=== PATIENT | male | born 1980 | race Caucasian/White ===

== ENCOUNTER 2025-01-05 20:33 | Inpatient (IN) | payer OTHER, SELFPAY ==
[2025-01-05 12:49] VITALS: BP 131/83
[2025-01-05 13:12] LABS: Urine Albumin 2+ (Neg - Trace); Urine Bilirubin 2+ (Negative); Urine Character Slightly Cloudy (Clear); Urine Glucose Negative (Negative); Urine Ketone Negative (Negative); Urine Leukocyte 3+ (Negative); Urine Nitrite Positive (Negative); Urine Occult Blood 4+ (Negative); Urine Urobilinogen 2+ (Neg - 1+)
[2025-01-05 13:14] LABS: Urine Color Orange
[2025-01-05 13:25] LABS: Urine Bacteria Few (Negative)
[2025-01-05 13:26] LABS: Urine Red Blood Cell 40-50 /HPF (0-2)
[2025-01-05 15:14] VITALS: BP 143/79
[2025-01-05 16:12] VITALS: BMI 32.8
--- NOTE | 2025-01-05 17:19 | ED.GENMED ---
History of Present Illness
<Quincy Orantes PA-C - Last Filed: 01/05/25 17:43>
General
Chief Complaint: Flank Pain
Time Seen by Provider: 01/05/25 16:09
History of Present Illness
History of Present Illness:
Patient is a 44-year-old male with past medical history of prior kidney stones here today for evaluation of left flank pain. Patient states he has been dealing with a large kidney stone that was approximately '1 inch' in size and 3 months ago had a
nephrostomy tube placed at [facility] at [facility]. At the time, he was incarcerated. Patient states this past 12/29/2024 he underwent removal of the kidney stone at [facility] in [facility] with urology. He was
discharged yesterday. He was found to have an infection and started on antibiotics however does not remember the name of the medication he is currently taking. He also states that he was released from incarceration this morning and was not
provided any antibiotic pills to take. Patient states he has been having worsening left-sided flank pain and therefore presents to the emergency department today for evaluation of this. No fevers. No vomiting. No other acute complaints.
<Shandra Ruff PA-C - Last Filed: 01/05/25 20:02>
General
Source: patient
Exam Limitations: none
Nursing documentation reviewed up to this point in time: agreed with
Review of Systems
<Quincy Orantes PA-C - Last Filed: 01/05/25 17:43>
Review of Systems
All Other Systems: ROS reviewed and negative except as documented in HPI and ROS
Phy Exam
<Quincy Orantes PA-C - Last Filed: 01/05/25 17:43>
Physical Exam
Physical Exam:
GENERAL: Alert , in no apparent distress
EYE: pupils equal
NECK: Supple
ENT: o/p clr, mmm.
CARDIAC: Regular rate and rhythm .
LUNGS: Clear breath sounds bilaterally, no acute respiratory distress, no wheezes/rales/rhonchi
ABDOMEN: Soft, without focal tenderness, no r/g, no cvat
BACK: Dressing in place to left flank, small circular opening along the patient's left CVA region without purulent drainage, erythema, induration, or fluctuance noted, there is mild dried bloody drainage along the dressing noted
NEUROLOGICAL: Alert and oriented, no focal neuro deficits
SKIN: Warm and dry, skin intact.
MUSCULOSKELETAL: No edema, well perfused.
PSYCH: Normal and appropriate interaction.
Course
<Quincy Orantes PA-C - Last Filed: 01/05/25 17:43>
Orders/Labs/Results
Orders:
Orders
01/05/25 13:04
Urinalysis Reflex To Culture Urgent
Date Specimen was Collected: 01/05/25
Time Specimen was Collected: 12:54
Urine Microscopic Reflex Cult Urgent
Urine Culture Urgent
UMESH Source: U
Specimen Description:
Date Specimen was Collected: 01/05/25
Time Specimen was Collected: 12:54
01/05/25 16:43
CT Abd/pelvis W Iv Cont Urgent
Comment:
Reason For Exam: left flank pain, recent kidney stone removal, UTI
01/05/25 16:44
Acetaminophen [Tylenol] 1,000 mg PO NOW STA
01/05/25 17:19
Complete Blood Count/With Diff Urgent
Comprehensive Metabolic Panel Urgent
01/05/25 17:42
CefTRIAXone [Rocephin] 1,000 mg IV NOW STA
01/05/25 19:52
0.9% Sodium Chloride 1000 ml [Nss] 1,000 ml IV BOLUS
Ketorolac [Toradol] 15 mg IV NOW STA
Abnormal Lab Results
01/05/25 01/05/25
13:04 17:19
WBC 10.9 H 10^3/uL
(4.8-10.8)
RBC 4.38 L 10^6/uL
(4.70-6.10)
Hgb 12.9 L g/dL
(13.0-18.0)
Hct 38.7 L %
(39.0-52.0)
Plt Count 116 L 10^3/uL
(130-400)
MPV 11.2 H fL
(7.4-10.4)
Absolute Neuts (auto) 8.2 H 10^3/uL
(1.4-6.5)
Absolute Monos (auto) 0.9 H 10^3/uL
(0.1-0.6)
Lymphocytes % 16.0 L %
(20.5-51.1)
Chloride 108 H mmol/L
(98-107)
Creatinine 0.6 L mg/dL
(0.7-1.3)
Ur Occult Blood Reflex 4+ A
(Negative)
Urine Nitrite (Reflex) Positive A
(Negative)
Urine Bilirubin 2+ A
(Negative)
Urine Urobilinogen 2+ A
(Neg - 1+)
Leukocyte Esterase Rfl 3+ A
(Negative)
Urine RBC 40-50 A /HPF
(0-2)
Urine WBC (Reflex) 11-15 A /HPF
(0-5)
Urine Bacteria (Reflex) Few A
(Negative)
Urine Albumin (Reflex) 2+ A
(Neg - Trace)
01/05/25 17:19
01/05/25 17:19
Vital Signs
Initial and Last Documented VS:
Initial Vital Signs
Temp Pulse Resp BP Pulse Ox
98.6 F 72 16 131/83 96
01/05/25 12:49 01/05/25 12:49 01/05/25 12:49 01/05/25 12:49 01/05/25 12:49
Last Documented Vital Signs
Temp Pulse Resp BP Pulse Ox
98.4 F 53 16 143/79 97
01/05/25 15:14 01/05/25 15:14 01/05/25 15:14 01/05/25 15:14 01/05/25 17:21
<Shandra Ruff PA-C - Last Filed: 01/05/25 20:02>
Orders/Labs/Results
Orders:
Orders
01/05/25 13:04
Urinalysis Reflex To Culture Urgent
Date Specimen was Collected: 01/05/25
Time Specimen was Collected: 12:54
Urine Microscopic Reflex Cult Urgent
Urine Culture Urgent
UMESH Source: U
Specimen Description:
Date Specimen was Collected: 01/05/25
Time Specimen was Collected: 12:54
01/05/25 16:43
CT Abd/pelvis W Iv Cont Urgent
Comment:
Reason For Exam: left flank pain, recent kidney stone removal, UTI
01/05/25 16:44
Acetaminophen [Tylenol] 1,000 mg PO NOW STA
01/05/25 17:19
Complete Blood Count/With Diff Urgent
Comprehensive Metabolic Panel Urgent
01/05/25 17:42
CefTRIAXone [Rocephin] 1,000 mg IV NOW STA
01/05/25 19:52
0.9% Sodium Chloride 1000 ml [Nss] 1,000 ml IV BOLUS
Ketorolac [Toradol] 15 mg IV NOW STA
Abnormal Lab Results
01/05/25 01/05/25
13:04 17:19
WBC 10.9 H 10^3/uL
(4.8-10.8)
RBC 4.38 L 10^6/uL
(4.70-6.10)
Hgb 12.9 L g/dL
(13.0-18.0)
Hct 38.7 L %
(39.0-52.0)
Plt Count 116 L 10^3/uL
(130-400)
MPV 11.2 H fL
(7.4-10.4)
Absolute Neuts (auto) 8.2 H 10^3/uL
(1.4-6.5)
Absolute Monos (auto) 0.9 H 10^3/uL
(0.1-0.6)
Lymphocytes % 16.0 L %
(20.5-51.1)
Chloride 108 H mmol/L
(98-107)
Creatinine 0.6 L mg/dL
(0.7-1.3)
Ur Occult Blood Reflex 4+ A
(Negative)
Urine Nitrite (Reflex) Positive A
(Negative)
Urine Bilirubin 2+ A
(Negative)
Urine Urobilinogen 2+ A
(Neg - 1+)
Leukocyte Esterase Rfl 3+ A
(Negative)
Urine RBC 40-50 A /HPF
(0-2)
Urine WBC (Reflex) 11-15 A /HPF
(0-5)
Urine Bacteria (Reflex) Few A
(Negative)
Urine Albumin (Reflex) 2+ A
(Neg - Trace)
01/05/25 17:19
01/05/25 17:19
Vital Signs
Initial and Last Documented VS:
Initial Vital Signs
Temp Pulse Resp BP Pulse Ox
98.6 F 72 16 131/83 96
01/05/25 12:49 01/05/25 12:49 01/05/25 12:49 01/05/25 12:49 01/05/25 12:49
Last Documented Vital Signs
Temp Pulse Resp BP Pulse Ox
98.4 F 53 16 143/79 97
01/05/25 15:14 01/05/25 15:14 01/05/25 15:14 01/05/25 15:14 01/05/25 17:21
<Quincy Orantes PA-C - Last Filed: 01/05/25 17:43>
MDM/Problems Addressed
Differential Diagnosis Includes:
Patient is a 44-year-old male with past medical history of prior kidney stones here today for evaluation of left flank pain. Overall, patient appears very well. Vital signs remarkable for an elevated blood pressure. Physical examination described
above. We will attempt to obtain records from [facility]. We will obtain basic screening labs, urinalysis, and CT scan of the abdomen and pelvis with IV contrast. Will provide Tylenol.
<Shandra Ruff PA-C - Last Filed: 01/05/25 20:02>
MDM/Problems Addressed
Chronic conditions affecting care:
Recent kidney stone removal on left side, history left sided nephrostomy tube
Acute Exacerbation and/or Progression of Chronic Illness:
Acute left-sided pyelonephritis
<Quincy Orantes PA-C - Last Filed: 01/05/25 17:43>
*Pulse Oximetry
SaO2: 97
Oxygen Mode of Delivery: Room air
<Shandra Ruff PA-C - Last Filed: 01/05/25 20:02>
*Radiology
Radiology exam reviewed: radiology read reviewed
*Pulse Oximetry
Patient hypoxic: no
*EKG
Interpreted by ED Provider?: NA
*Lan Administrator Interpretation
Rate: Lan Administrator- N/A
*Critical Care Note
Total Time (30-74mins, 75-104mins- exclusive of procedures): Not Applicable
<Shandra Ruff PA-C - Last Filed: 01/05/25 20:02>
Patient Management
Discussion with other providers: Hospitalist
Escalation/DeEscalation of care consider admission/obs:
Admit for IV antibiotics for left-sided pyelonephritis
<Shandra Ruff PA-C - Last Filed: 01/05/25 20:02>
Update Note
Update Note:
Update 19:45: received patient in signout pending lab results and CT scan. Labs reveal mild leukocytosis of 10.9. Chemistry unremarkable. No evidence of renal insufficiency. Urine does appear infected as positive nitrate, 3+ leukocyte esterase,
11-[address] scan consistent with a left-sided pyelonephritis. Did discuss findings and reassessed patient at bedside who remains well and comfortable appearing. He does report persistent pain in left flank following Tylenol. Given recent
instrumentation and findings of acute pyelonephritis�will admit for IV antibiotics. Patient given IV Rocephin. Will give IV Toradol and IV fluids. Pain To the hospital service in stable condition.
ED Attending Note
<Quincy Orantes PA-C - Last Filed: 01/05/25 17:43>
-
Portions of this chart may have been created with voice recognition software.� Occasional wrong word or��sound alike� substitutions may have occurred due to the inherent limitations of voice recognition software.
Discharge Plan
Departure
Patient Disposition: Admit
Date of Disposition: 01/05/25
Time of Disposition: 19:53
Presentation/result/management discussed w/ accepting MD/DO: Hospitalist
Discharge Problem:
Acute pyelonephritis
Referrals:
NONE,* [Family Provider, Internal Medicine]
Interventions
Interventions:
*Risk Screen - Suicide Last Done: 01/05/25 16:12
*General Assessment Last Done: 01/05/25 16:12
*Neglect/Abuse Screening Last Done: 01/05/25 16:12
*ED- Fall Risk Assessment Last Done: 01/05/25 16:12
*ED COVID-19 Vaccine History Last Done: 01/05/25 16:12
Discharge Date and Time
Print Language: YORUBA
[2025-01-05] MEDS: TYLENOL 1000 MG PO (17:24)
[2025-01-05 17:40] LABS: ALT (SGPT) 17 U/L (0-50); AST (SGOT) 18 U/L (17-59); Albumin 3.8 g/dl (3.5-5.0); Alkaline Phosphatase 50 U/L (38-126); Blood Urea Nitrogen 13 mg/dl (9-20); Calcium 9.3 mg/dl (8.4-10.2); Carbon Dioxide 27 mmol/L (22-30); Chloride 108 mmol/L (98-107); Estimated Creatinine Clearance > 125 ml/min; Glucose 97 mg/dl (70-99); Potassium 4.6 mmol/L (3.5-5.1); Sodium 141 mmol/L (135-145); Total Bilirubin 0.7 mg/dl (0.2-1.3); Total Protein 6.6 g/dl (6.3-8.2); eGFR > 60.00
[2025-01-05] MEDS: ROCEPHIN 1000 MG IV (17:53)
[2025-01-05 18:19] LABS: % Basophils 0.4 % (0-2); % Eosinophils 0.6 % (0-6); % Immature Granulocytes 0.3 % (0-0.5); % Monocytes 7.9 % (1.7-9.3); % Neutrophils 74.8 % (42.2-75.2); Absolute Eosinophils 0.1 10^3/uL (0-0.7); Absolute Lymphocytes 1.7 10^3/uL (1.2-3.4); Absolute Monocytes 0.9 10^3/uL (0.1-0.6); Absolute Neutrophils 8.2 10^3/uL (1.4-6.5); Hematocrit 38.7 % (39.0-52.0); Hemoglobin 12.9 g/dL (13.0-18.0); Mean Corp Hgb Conc. 33.3 g/dL (33.0-37.0); Mean Corpuscular Hgb 29.5 pg (27.0-31.0); Mean Corpuscular Volume 88.4 fL (80.0-94.0); Mean Platelet Volume 11.2 fL (7.4-10.4); Nucleated Red Blood Cells % 0 % (-); Platelet Count 116 10^3/uL (130-400); Red Blood Cell Count 4.38 10^6/uL (4.70-6.10); Red Cell Dist. Width 14.5 % (11.5-14.5); White Blood Cell Count 10.9 10^3/uL (4.8-10.8)
[2025-01-05] MEDS: TORADOL 15 MG IV (20:10)
[2025-01-05] MEDS: NSS 1000 IV ×2 (20:11→21:24)
--- NOTE | 2025-01-05 20:20 | HPS.HSE ---
Family Physician
-
Family Physician: * NONE
Chief Complaint
-
left flank pain
History of Present Illness
44-year-old male past medical history of frequent UTIs, nephrolithiasis, here for left-sided flank pain ongoing for several months.
Patient has a complicated history of frequent UTIs and nephrolithiasis. 3 months ago he underwent left-sided nephrostomy for ureteral stone. 3 days ago he underwent kidney stone extraction, reversal of nephrostomy and placement of left ureteral
stent. He was started on antibiotics, he has been having some suprapubic discomfort over the past few days and blood in the urine. Has some nausea. Denies any fevers or chills.
He used to use methamphetamines. Denies smoking or alcohol or any drug use at this time.
Medical History
Past Medical History
Past Medical History: Reports Other (frequent UTIs, nephrolithiasis)
Past Surgical History: Reports None
Social History
Tobacco: Non-smoker
Alcohol: None
Drug: None
Family History
Family History: Not pertinent
Allergies / Home Medications
Allergies reflects when Allergies were last updated in [employer].
Home Medications with original date entered in [employer]
Allergy/Medication List:
Allergies
Allergy/AdvReac Type Severity Reaction Status Date / Time
No Known Allergies Allergy Unverified 01/05/25 12:53
Home Medications
No Meds [No Current Medications] 01/05/25
Review of Systems
-
History Source: Patient
A 12 point ROS was completed and negative except as noted: Yes
Constitutional: Reports No Symptoms
EENT: Reports No Symptoms
Respiratory: Reports No Symptoms
Cardiac: Reports No Symptoms
Abdomen/GI: Reports See HPI
: Reports See HPI
Musculoskeletal: Reports No Symptoms
Skin: Reports No Symptoms
Neurological: Reports No Symptoms
Endocrine: Reports No Symptoms
Hematologic/Lymphatic: Reports No Symptoms
Psych: Reports No Symptoms
Physical Exam
Vital Signs
Vital Signs
Temp Pulse Resp BP Pulse Ox
98.4 F 53 16 143/79 97
01/05/25 15:14 01/05/25 15:14 01/05/25 15:14 01/05/25 15:14 01/05/25 17:21
Physical Exam
General: Well Developed, Well Nourished and No Apparent Distress
HEENT: NormoCephalic, Moist mucous membranes and Atraumatic
Respiratory: Clear
Cardiac: S1/S2 and Regular Rhythm; No Murmur or Rub
GI: Soft, Non Tender, Non Distended and Normal Bowel Sounds; No Organomegaly
Rectal: Deferred by Provider
Genito-urinary: Costovertebral angle tend (left )
Musculoskeletal: No Clubbing, No Cyanosis and No Edema
Skin: No Rash
Neuro: Nonfocal/grossly intact
Laboratory Results
-
01/05/25 17:19
01/05/25 17:19
Laboratory Results
Total Bilirubin 0.7 mg/dl (0.2-1.3) 01/05/25 17:19
AST 18 U/L (17-59) 01/05/25 17:19
ALT 17 U/L (0-50) 01/05/25 17:19
Alkaline Phosphatase 50 U/L (38-126) 01/05/25 17:19
Data Reviewed
-
Lab Data: Labs Reviewed by me
Old Records: Reviewed
Impression/Plan
-
IMPRESSION:
PLAN:
# Left-sided pyelonephritis
# History of nephrolithiasis status post left-sided nephrostomy tube 3 months ago status post kidney stone extraction, reversal of nephrostomy and placement of left ureteral stent 3 days ago
- Leukocytosis
- Urinalysis shows 11-15 WBC, +3 leukoesterase, positive nitrates
-CT abdomen pelvis shows left-sided pyelonephritis, left internal double-J nephroureteral stent appears at the approximate level of the uteropelvic junction
- Urine culture
-IV fluids
- Ceftriaxone
-Zofran, Toradol, Dilaudid as needed
- Urology consulted
Former methamphetamine use
Full code
DVT prophylaxis�SCDs
Regular diet
[2025-01-05 20:40] VITALS: BP 144/73
--- NOTE | 2025-01-05 20:53 | PTCARENOTE ---
Pt received from ED to 414-2. Pt oriented to room and call lofton.
[2025-01-05 21:00] VITALS: BP 159/79; BMI 32.3
[2025-01-06 04:43] VITALS: BP 159/91
[2025-01-06] MEDS: ZOFRAN 4 MG IV (04:45)
[2025-01-06] MEDS: TORADOL 10 MG IV (04:56)
[2025-01-06 05:00] LABS: % Basophils 0.3 % (0-2); % Eosinophils 1.4 % (0-6); % Immature Granulocytes 0.3 % (0-0.5); % Lymphocytes 16.4 % (20.5-51.1); % Monocytes 10.4 % (1.7-9.3); % Neutrophils 71.2 % (42.2-75.2); Absolute Eosinophils 0.1 10^3/uL (0-0.7); Absolute Lymphocytes 1.6 10^3/uL (1.2-3.4); Absolute Neutrophils 6.7 10^3/uL (1.4-6.5); Hematocrit 36.4 % (39.0-52.0); Hemoglobin 12.2 g/dL (13.0-18.0); Mean Corp Hgb Conc. 33.5 g/dL (33.0-37.0); Mean Corpuscular Hgb 29.7 pg (27.0-31.0); Mean Corpuscular Volume 88.6 fL (80.0-94.0); Mean Platelet Volume 10.5 fL (7.4-10.4); Nucleated Red Blood Cells % 0 % (-); Platelet Count 165 10^3/uL (130-400); Red Blood Cell Count 4.11 10^6/uL (4.70-6.10); Red Cell Dist. Width 14.3 % (11.5-14.5); White Blood Cell Count 9.5 10^3/uL (4.8-10.8)
[2025-01-06 05:20] LABS: ALT (SGPT) 16 U/L (0-50); AST (SGOT) 18 U/L (17-59); Albumin 3.4 g/dl (3.5-5.0); Alkaline Phosphatase 51 U/L (38-126); Blood Urea Nitrogen 14 mg/dl (9-20); Calcium 8.5 mg/dl (8.4-10.2); Carbon Dioxide 24 mmol/L (22-30); Chloride 111 mmol/L (98-107); Estimated Creatinine Clearance > 125 ml/min; Glucose 103 mg/dl (70-99); Potassium 4.3 mmol/L (3.5-5.1); Sodium 140 mmol/L (135-145); Total Bilirubin 0.6 mg/dl (0.2-1.3); eGFR > 60.00
[2025-01-06 07:00] VITALS: BP 118/61
[2025-01-06] MEDS: NSS 1000 IV ×2 (07:04→17:13)
--- NOTE | 2025-01-06 11:28 | CM ---
Patient seen bedside, initial assessment completed. Patient is a 44-year-old male past medical history of frequent UTIs, nephrolithiasis, here for left-sided flank pain ongoing for several months.
Patient reports that he was released from [facility] yesterday. Patient was taken from [facility] to [facility] where he was released and then came to the hospital. Patient stated at d/c he will go to his significant other's home
w/ her son. Significant other's home is a [address], no steps to enter. Patient is independent in all areas, no DME. Patient stated he attempted to reinstate his [employer] insurance but will have to follow up w/ another department to complete this.
Patient stated he will need assistance w/ transport at d/c as he does not have anyone that can pick him up.
Address, point of contact verified.
Patient will d/c to [facility] [place] [address]
Plan: Home, no needs likely
--- NOTE | 2025-01-06 11:40 | CONS.URO ---
Consultation
-
Date/Time Consultation Requested: 01/06
Date/Time Consultation Performed: 01/06
Requesting Provider: Isa
Performing Provider: Reg
Reason for Consultation: left pyelonephritis s/p left ULS
Medical History
History of Present Illness
44M presents to [facility] ED w/ suprapubic discomfort in last several days and hematuria.
+nausea w/o fevers/chils.
H/o metheamphetamine use - recently discharged from incarceration in last few days.
[facility] - discharged home on antibiotic course.
Prior to his recent procedure, he had a left PCN in place (removed at time of surgery).
Past Medical History
Past Medical History: Other (methamphetamine abuse, rUTIs, nephrolithiasis)
Past Surgical History: Urological (s/p left ULS (12/2024))
Social History
Tobacco: Non-smoker
Alcohol: None
Drug: Former User
Family History
Family History: Reviewed & Not Pertinent
Allergies/Home Medications
Allergies
Allergy/AdvReac Type Severity Reaction Status Date / Time
No Known Allergies Allergy Unverified 01/05/25 12:53
Home Medications
�Medication �Instructions �Recorded �Confirmed �Type
No Meds [No Current Medications] 01/05/25 01/05/25 History
Physical Exam
Vital Signs
Vital Signs
Temp Pulse Resp BP Pulse Ox
99.0 F 60 16 118/61 95
01/06/25 07:00 01/06/25 07:00 01/06/25 07:00 01/06/25 07:00 01/06/25 07:00
Lab / Testing Results
Laboratory Results
01/06/25 04:36
01/06/25 04:36
Physical Exam
General: Well Developed, Well Nourished and No Apparent Distress
HEENT: Normocephalic and Anicteric
Respiratory: Non Labored Respirations
Cardiac: Regular Rhythm
Breast: N/A
GI: Soft, Non Tender and Non Distended
Rectal: Deferred by Provider
Genito-urinary: No Costovertebral Tend and Clear Urine
Musculoskeletal: No Edema
Skin: Warm and Dry
Neuro: AO x 3, No Motor Deficits and Nonfocal/Grossly Intact
Hematologic/Lymphatic: No Lymphadenopathy
Psych: Calm and Intact Judgement
Assessment / Plan
-
Ascending cUTI - c/w left pyelonephritis
H/o left ureteral stone s/p left ULS (12/2024 @[facility])
CTAP w/ IV contrast reviewed => left ureteral stent in appropriate position, no left hydronephrosis, left perirenal fat stranding
UCx => NG
- Advise IV antibiotics x24 hrs additional prior to conversion to PO course for cUTI (given radiographic findings and recent urologic instrumentation)
- No indication for uro-surgical intervention
- F/U w/ Urology @[facility] in 2 weeks for stent removal as scheduled
D/w patient
D/w Dr. Moss
Data Reviewed
-
Total Time Spent with Patient (in minutes): 45
CT Scan: Image personally visualized and interpreted, Report Reviewed by Me, Discussed with Physician and Discussed with Patient
Lab Data: Labs Reviewed, Discussed with Physician and Discussed with Patient
Old Records: Reviewed
--- NOTE | 2025-01-06 13:09 | W.PN.HOSP.TC ---
Today's Communication/Plan
-
continue IV abx
Assessment / Plan
Assessment / Plan
# Left-sided pyelonephritis
# History of nephrolithiasis status post left-sided nephrostomy tube 3 months ago status post kidney stone extraction, reversal of nephrostomy and placement of left ureteral stent 3 days ago
- Leukocytosis
10.9-->9.5
- Urinalysis shows 11-15 WBC, +3 leukoesterase, positive nitrates
-CT abdomen pelvis shows left-sided pyelonephritis, left internal double-J nephroureteral stent appears at the approximate level of the uteropelvic junction
- Urine culture-No growth
-IV fluids
- Ceftriaxone
-Zofran, Toradol, Dilaudid as needed
- Urology consulted, reviewed with Dr. Finney
Plan is to continue IV abx until tomorrow and if continues to do well, to be dc on oral abx
Former methamphetamine use
Full code
DVT prophylaxis�SCDs
Regular diet
Anticipated Discharge: Within 24 hours
Subjective/Interval History
-
Date of Service: January 06, 2025
generally feels better
Objective Data
-
Labs:
Laboratory Results
01/06/25
04:36
WBC 9.5
Hgb 12.2 L
Hct 36.4 L
Plt Count 165 D
Sodium 140
Potassium 4.3
Chloride 111 H
Carbon Dioxide 24
BUN 14
Creatinine 0.7
Glucose 103 H
Calcium 8.5
Total Bilirubin 0.6
AST 18
ALT 16
Alkaline Phosphatase 51
Vital Signs:
Vital Signs
Temp Pulse Resp BP Pulse Ox
99.0 F 60 16 118/61 95
01/06/25 07:00 01/06/25 07:00 01/06/25 07:00 01/06/25 07:00 01/06/25 07:00
I&O
01/05/25 01/06/25 01/07/25
06:59 06:59 06:59
Intake Total 1430 / 1430
Balance 1430 / 1430
Review of Systems
-
History Source: Patient and Physician (reviewed with Dr. Finney)
Constitutional: Denies Fever
EENT: Reports No Symptoms Reported
Respiratory: Reports No Symptoms
Cardiac: Reports No Symptoms
Abdomen/GI: Reports No Symptoms
Genitourinary: Denies Dysuria
Musculoskeletal: Reports No Symptoms
Neuro: Reports No Symptoms
Physical Exam
-
General: Well Developed, Well Nourished and No Apparent Distress
HEENT: Normocephalic, Atraumatic and Moist Mucous Membranes
Respiratory: Clear to Auscultation; Negative Wheezes, Rales or Rhonchi
Cardiac: Regular Rhythm and S1/S2
GI: Soft, Nontender and Nondistended
Genito-urinary: No Costovertebral Tender
Musculoskeletal: No Clubbing, No Cyanosis and No Edema
Neuro: Awake, Alert and Oriented
[2025-01-06 15:45] VITALS: BP 147/78
[2025-01-06] MEDS: STERILE WATER FOR INJECTION 10 ML IV (17:14)
[2025-01-06] MEDS: ROCEPHIN 1000 MG IV (17:14)
[2025-01-06] MEDS: DILAUDID 0.5 MG IV (19:58)
[2025-01-06 23:00] VITALS: BP 145/76
[2025-01-07] MEDS: DILAUDID 0.5 MG IV (02:54)
[2025-01-07] MEDS: NSS 1000 IV (02:55)
[2025-01-07 05:22] LABS: % Basophils 0.5 % (0-2); % Eosinophils 1.8 % (0-6); % Immature Granulocytes 0.4 % (0-0.5); % Lymphocytes 17.8 % (20.5-51.1); % Monocytes 11.8 % (1.7-9.3); % Neutrophils 67.7 % (42.2-75.2); Absolute Basophils 0.1 10^3/uL (0-0.2); Absolute Eosinophils 0.2 10^3/uL (0-0.7); Absolute Lymphocytes 1.7 10^3/uL (1.2-3.4); Absolute Monocytes 1.2 10^3/uL (0.1-0.6); Absolute Neutrophils 6.6 10^3/uL (1.4-6.5); Hematocrit 35.5 % (39.0-52.0); Hemoglobin 12.1 g/dL (13.0-18.0); Mean Corp Hgb Conc. 34.1 g/dL (33.0-37.0); Mean Corpuscular Hgb 30.1 pg (27.0-31.0); Mean Corpuscular Volume 88.3 fL (80.0-94.0); Mean Platelet Volume 10.6 fL (7.4-10.4); Nucleated Red Blood Cells % 0 % (-); Platelet Count 197 10^3/uL (130-400); Red Blood Cell Count 4.02 10^6/uL (4.70-6.10); Red Cell Dist. Width 13.9 % (11.5-14.5); White Blood Cell Count 9.8 10^3/uL (4.8-10.8)
[2025-01-07 07:00] VITALS: BP 146/78
[2025-01-07 08:00] VITALS: BP 146/78
[2025-01-07] MEDS: TYLENOL 650 MG PO (08:13)
--- NOTE | 2025-01-07 09:03 | W.PN.UPDATE ---
Update Note
Progress Note Update
Ascending cUTI - c/w left pyelonephritis
H/o left ureteral stone s/p left ULS (12/2024 @[facility])
CTAP w/ IV contrast reviewed => left ureteral stent in appropriate position, no left hydronephrosis, left perirenal fat stranding
UCx => NG
- Recommend PO treatment course for pyelonephritis (total 10-14 days given recent urologic instrumentation)
- No indication for uro-surgical intervention
- F/U w/ urologist @[facility] in 2 weeks for stent removal as scheduled
--- NOTE | 2025-01-07 10:57 | W.PN.HOSP.TC ---
Today's Communication/Plan
-
dc to home
Assessment / Plan
Assessment / Plan
# Left-sided pyelonephritis
# History of nephrolithiasis status post left-sided nephrostomy tube 3 months ago status post kidney stone extraction, reversal of nephrostomy and placement of left ureteral stent 3 days ago
- Leukocytosis
10.9-->9.5-->9.8
- Urinalysis shows 11-15 WBC, +3 leukoesterase, positive nitrates
-CT abdomen pelvis shows left-sided pyelonephritis, left internal double-J nephroureteral stent appears at the approximate level of the uteropelvic junction
- Urine culture-No growth
-IV fluids
- Ceftriaxone to go to [facility] for 14 days
-Zofran, Toradol, Dilaudid as needed
- Urology consulted, reviewed with Dr. Finney, input appreciated
Has appt with urologist in 2 weeks in [facility], does not remember name
Former methamphetamine use
Full code
DVT prophylaxis�SCDs
Regular diet
Anticipated Discharge: Today
Subjective/Interval History
-
Date of Service: January 07, 2025
Feels better, no dysuria
Objective Data
-
Labs:
Laboratory Results
01/07/25
05:03
WBC 9.8
Hgb 12.1 L
Hct 35.5 L
Plt Count 197
Vital Signs:
Vital Signs
Temp Pulse Resp BP Pulse Ox
98.0 F 52 18 146/78 94
01/07/25 07:00 01/07/25 07:00 01/07/25 07:00 01/07/25 07:00 01/07/25 07:00
I&O
01/06/25 01/07/25 01/08/25
06:59 06:59 06:59
Intake Total 1430 / 1430 1649
Balance 1430 / 1430 1649 / 1649
Review of Systems
-
History Source: Patient and Physician (reviewed with Dr. Finney)
Constitutional: Denies Fever
EENT: Reports No Symptoms Reported
Respiratory: Reports No Symptoms
Cardiac: Reports No Symptoms
Abdomen/GI: Reports No Symptoms
Genitourinary: Denies Dysuria
Musculoskeletal: Reports No Symptoms
Neuro: Reports No Symptoms
Physical Exam
-
General: Well Developed, Well Nourished and No Apparent Distress
HEENT: Normocephalic, Atraumatic and Moist Mucous Membranes
Respiratory: Clear to Auscultation; Negative Wheezes, Rales or Rhonchi
Cardiac: Regular Rhythm and S1/S2
GI: Soft, Nontender and Nondistended
Genito-urinary: No Costovertebral Tender
Musculoskeletal: No Clubbing, No Cyanosis and No Edema
Neuro: Awake, Alert and Oriented
--- NOTE | 2025-01-07 13:31 | CM ---
Patient for d/c today. PO abx.
Patient needs assistance w/ transportation to [place]. Discussed w/ CM director, CM was approved to provide elliott to patient for a train ticket to [address] and elliott for a bus ticket from [facility] to [place]. A
lyft to [place] train station will be arranged for patient. Midline to be removed prior to d/c. Elliott left in envelope w/ nurse.
Patient shared a friend will be able to meet him in [place]. Patient understanding he cannot be transported the entire way.
Patient inquired about IP D&A rehab. CM spoke w/ Vasu/[facility], since patient is without insurance at this time and not a [place] or [facility] resident, he won't be able to assist w/ placement. Vasu advised for patient to reach out to his
county in [place] for assistance w/ placement and [facility] funding if he does not reinstate his insurance. Patient stated he will call his insurance tomorrow to reinstate.
Plan: Home, no needs
[2025-01-07 13:39] VITALS: BP 130/72
--- NOTE | 2025-01-09 16:52 | W.DS.TRANS ---
DC Summary - [employer]
-
Discharge Instructions:
Discharge Diagnosis/Procedures Pyelonephritis
Diet No restrictions
Activity No restrictions
Driving Restrictions As prior to admission
Bathing Restrictions None
Instructions:
Stand-Alone Forms:
Changes to Home Medications: Yes
Discharge Medications:
DC Medications w/original date entered in [employer]
amoxicillin 875 mg-potassium clavulanate 125 mg tablet 1 tab PO Q12H #28 tabs 01/07/25
Home Medication Changes
Augmentin added to his medications
Pending Results: No
== END 2025-01-07 14:43 | disposition home or self-care (01) | DRG 690 ==
LOC: 4 WEST ACU 20:33
PROVIDERS: Emergency Medicine; ADMITTING PHYSICIAN Hospitalist; ATTENDING PHYSICIAN Internal Medicine; CONSULT PHYSICIAN Surgery; EMERGENCY PHYSICIAN Student in an Organized Health Care Education/Training Program
DX: N10 Acute pyelonephritis (principal); Z87.440 Personal history of urinary (tract) infections; Z87.442 Personal history of urinary calculi
CPT/HCPCS: 74177; 80053; 81003; 81015; 85025; 87070; 87086; 96361; 96374; 96375; 99284; 99406; Q9967